=== PATIENT | female | born 1995 | race Caucasian/White ===

== ENCOUNTER 2018-09-18 08:16 | Emergency (ER) | payer OTHER ==
[2018-09-18] MEDS ORDERED: MORPHINE 4 MG/ML SYR ONE (09:18)
[2018-09-18] MEDS ORDERED: ONDANSETRON 4 MG/2 ML VIAL ONE (09:19)
[2018-09-18] MEDS ORDERED: NA CHLORIDE 0.9% 1,000 ML ONE (09:19)
[2018-09-18 09:45] LABS: Absolute Lymphocytes (CBC) 0.9 K/uL (0.7-4.9); Absolute Monocytes 0.9 K/uL (0.1-1.3); Absolute Neutrophil 7.9 K/uL (1.8-8.0); Basophils % 0.5 % (0-1.3); Hematocrit 37.1 % (36.0-45.0); Lymphocytes % 9.3 % (15.3-44.8); MCH 29.8 pg (27.0-35.0); MCV 87.1 fL (80-100); MPV 8.9 fL (7.6-11.3); Monocytes % 9.4 % (3.3-12.3); RBC Red Blood Cell Count 4.26 M/uL (3.86-4.86)
[2018-09-18 10:05] LABS: Urine Blood TRACE (NEG); Urine Glucose NEGATIVE (NEG); Urine Protein 1+ (NEG)
[2018-09-18 10:11] LABS: Albumin 3.9 g/dL (3.4-5.0); Bilirubin Direct 0.1 mg/dL (0-0.2); Bilirubin Total 0.5 mg/dL (0.2-1.0); Potassium 3.5 mmol/L (3.5-5.1); Protein, Total 8.4 g/dL (6.4-8.2)
[2018-09-18 10:19] LABS: Urine Bacteria <20 /HPF (<20); Urine RBC <5 /HPF (NONE SEEN)
[2018-09-18 10:20] LABS: Urine Culture Reflex Order REFLEXED; Urine Mucus 1+ /HPF (NONE SEEN)
--- NOTE | 2018-09-18 11:12 | RAD REPORT ---
EXAM DESCRIPTION: CT - Abdomen Pelvis W Contrast - 09/18/2018 10:31 am CLINICAL HISTORY: Abdominal pain, bilateral flank pain COMPARISON: None. TECHNIQUE: Biphasic, helical CT imaging of the abdomen and pelvis was performed following 100 ml non -ionic IV contrast. Oral contrast was given. All CT scans are performed using dose optimization technique as appropriate and may include automated exposure control or mA/KV adjustment according to patient size. FINDINGS: No suspicious findings in the lung bases. The liver, spleen, and pancreas show no suspicious findings. Gallbladder and biliary tree are also wi thout suspicious finding. Liver attenuation is borderline fatty infiltrated. Symmetric renal function is seen with no hydronephrosis or suspicious renal mass. No pyelonephritis o r acute renal parenchymal process. Urinary bladder is fully contracted. No bladder calculi seen. IUD is in place well positioned in a normal-sized uterus. No suspicious ovarian or adnexal finding. Kathy l for age ovarian cysts or follicles are present. No gastric dilatation or wall thickening. No acute small bowel finding. No appendicitis findings. A f ew small mesenteric lymph nodes seen in the right lower quadrant. No free air, free fluid or inflammatory stranding. No hernia, mass or bulky lymphadenopathy. No adre nal abnormality. No suspicious bony findings. IMPRESSION: No pyelonephritis or acute finding. No acute MOTOR SETTER process. A few small mesenteric lymph nodes are present nonspecific for pattern adenitis or nonspecific enteri tis. No appendicitis or acute GI process seen. Borderline fatty infiltration of the liver.
[2018-09-18] MEDS ORDERED: KETOROLAC 30 MG/ML INJ ONE (12:16)
--- NOTE | 2018-09-18 13:39 | ER ---
Nurse's Notes [facility] Name: Paola Aguilar Age: 22 yrs Sex: Female : 1995 Arrival Date: 09/18/2018 Time: 08:17 Bed 16 Private MD: Diagnosis: Low back pain;Myalgia Presentation: 09/18 08:30 Presenting complaint: Patient states: Mid back pain and urinary urgency x 1 week. hb Transition of care: patient was not received from another setting of care. Onset of symptoms is unknown. Risk Assessment: Do you want to hurt yourself or someone else? Patient reports no desire to harm self or others. Care prior to arrival: None. 08:30 Method Of Arrival: Ambulatory hb 08:30 Acuity: DESIREE 3 hb 08:43 Initial Sepsis Screen: Does the patient meet any 2 criteria? No. Patient's initial hj sepsis screen is negative. Does the patient have a suspected source of infection? No. Patient's initial sepsis screen is negative. Triage Assessment: 08:42 General: Appears in no apparent distress. uncomfortable, Behavior is calm, cooperative, hj appropriate for age. Pain: Complains of pain in back. Musculoskeletal: Circulation, motion, and sensation intact. Capillary refill. 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 - Social history:: Smoking status: Patient/guardian denies using tobacco. - Ebola Screening: : No symptoms or risks identified at this time. Screenin:42 Abuse screen: Denies threats or abuse. Denies injuries from another. Nutritional hj screening: No deficits noted. Tuberculosis screening: No symptoms or risk factors identified. Fall Risk None identified. Assessment: 08:30 General: Appears in no apparent distress. uncomfortable, Behavior is calm, cooperative, hj appropriate for age. Pain: Complains of pain in back. Neuro: Level of Consciousness is awake, alert, obeys commands, Oriented to person, place, time, situation, Appropriate for age. Cardiovascular: Capillary refill < 3 seconds Patient's skin is warm and dry. Respiratory: Airway is patent Respiratory effort is even, unlabored, Respiratory pattern is regular, symmetrical. GI: No signs and/or symptoms were reported involving the gastrointestinal system. : No signs and/or symptoms were reported regarding the genitourinary system. EENT: No signs and/or symptoms were reported regarding the EENT system. Derm: No signs and/or symptoms reported regarding the dermatologic system. Musculoskeletal: Reports pain in back. 09:30 Reassessment: Patient and/or family updated on plan of care and expected duration. Pain hj level reassessed. Patient is alert, oriented x 3, equal unlabored respirations, skin warm/dry/pink. awaiting results and POC: family in room;. 10:30 Reassessment: Patient and/or family updated on plan of care and expected duration. Pain hj level reassessed. Patient is alert, oriented x 3, equal unlabored respirations, skin warm/dry/pink. Patient states feeling better. 11:05 Reassessment: Patient and/or family updated on plan of care and expected duration. Pain hj level reassessed. Patient is alert, oriented x 3, equal unlabored respirations, skin warm/dry/pink. awaiting POC;. 13:00 Reassessment: awaiting other results;. hj Vital Signs: 08:31 BP 151 / 89; Pulse 111; Resp 16; Temp 99.5(O); Pulse Ox 100% on R/A; Pain 8/10; hb 09:30 BP 130 / 87; Pulse 100; Resp 18; Pulse Ox 100% on R/A; hj 11:05 BP 121 / 75; Pulse 106; Resp 18; Pulse Ox 100% on R/A; hj 13:01 BP 125 / 75; Pulse 98; Resp 18; Pulse Ox 100% on R/A; hj 13:37 Temp 99.0(O); hj ED Course: 08:17 Patient arrived in ED. as 08:31 Triage completed. hb 08:31 Arm band placed on right wrist. hb 08:42 Adrian Syed RN is Primary Nurse. hj 08:42 Benjy Davis PA is PHCP. jr8 08:42 Dayo Polanco MD is Attending Physician. jr8 08:43 Patient has correct armband on for positive identification. Placed in gown. Bed in low hj position. Call light in reach. Side rails up X 1. Adult w/ patient. 09:26 Strep Sent. hj 09:26 Urine Microscopic Only Sent. hj 09:26 Basic Metabolic Panel Sent. hj 09:26 CBC with Diff Sent. hj 09:26 Creatinine for Radiology Sent. hj 09:26 Hepatic Function Sent. hj 09:26 Lipase Sent. hj 10:31 CT Abd/Pelvis - W/Contrast In Process Unspecified. EDMS 12:15 Flu and/or RSV swab sent to lab. 3 13:23 XRAY Chest (1 view) In Process Unspecified. EDMS 13:48 No provider procedures requiring assistance completed. IV discontinued, intact, hj bleeding controlled, No redness/swelling at site. Pressure dressing applied. Administered Medications: 09:20 Drug: NS 0.9% 1000 ml Route: IV; Rate: 1000 ml; Site: right antecubital; hj 10:08 Follow up: IV Status: Infusion continued hj 09:20 Drug: morphine 4 mg Route: IVP; Site: right antecubital; hj 10:07 Follow up: Response: No adverse reaction; Pain is decreased hj 09:20 Drug: Zofran 4 mg Route: IVP; Site: right antecubital; hj 10:07 Follow up: Response: No adverse reaction; Nausea is decreased hj 12:04 Drug: TORadol 30 mg Route: IVP; Site: right antecubital; hj 13:27 Follow up: Response: No adverse reaction; Pain is decreased hj Outcome: 13:39 Discharge ordered by MD. haskins 13:48 Discharged to home ambulatory, with family. hj 13:48 Condition: stable 13:48 Discharge instructions given to patient, family, Instructed on discharge instructions, follow up and referral plans. medication usage, Demonstrated understanding of instructions, follow-up care, medications, Prescriptions given X 1. 13:49 Patient left the ED. Signatures: Dispatcher [employer] EDMS Supriya Reno Josh, PA PA jr8 Joaquin, Henry, RN RN hj Baxter, Heather, RN RN hb Herrera, Deanna [facility] Corrections: (The following items were deleted from the chart) 08:32 08:31 LMP 09/18/2018 hb hb
--- NOTE | 2018-09-18 13:39 | EDPHYS ---
Physician Documentation [facility] Name: Paola Aguilar Age: 22 yrs Sex: Female : 1995 Arrival Date: 09/18/2018 Time: 08:17 Bed 16 Private MD: ED Physician Dayo Polanco HPI: 09/18 09:43 This 22 yrs old Female presents to ER via Ambulatory with complaints of Back jr8 Pain. 09:43 The patient presents with pain that is acute. The symptoms are located in the low back. jr8 Onset: The symptoms/episode began/occurred acutely, 2 day(s) ago. The pain does not radiate. Associated signs and symptoms: Pertinent positives: fever. Modifying factors: The patient symptoms are alleviated by nothing, the patient symptoms are aggravated by any movement. Severity of symptoms: At their worst the symptoms were moderate, in the emergency department the symptoms are unchanged. The patient has not experienced similar symptoms in the past. The patient has not recently seen a physician. UTI symptoms last week but stated that since then has resolved. Denies trauma or recent procedures to back . 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 - Social history:: Smoking status: Patient/guardian denies using tobacco. - Ebola Screening: : No symptoms or risks identified at this time. ROS: 09:43 Eyes: Negative for injury, pain, redness, and discharge, ENT: Negative for injury, jr8 pain, and discharge, Neck: Negative for injury, pain, and swelling, Cardiovascular: Negative for chest pain, palpitations, and edema, Respiratory: Negative for shortness of breath, cough, wheezing, and pleuritic chest pain, MS/Extremity: Negative for injury and deformity, Skin: Negative for injury, rash, and discoloration, Neuro: Negative for headache, weakness, numbness, tingling, and seizure. 09:43 Constitutional: Positive for body aches, chills, fever. 09:43 Abdomen/GI: Positive for nausea, Negative for abdominal pain, vomiting, diarrhea. 09:43 Back: Positive for pain at rest, pain with movement, of the low back area. Exam: 09:43 Eyes: Pupils equal round and reactive to light, extra-ocular motions intact. Lids and jr8 lashes normal. Conjunctiva and sclera are non-icteric and not injected. Cornea within normal limits. Periorbital areas with no swelling, redness, or edema. ENT: Nares patent. No nasal discharge, no septal abnormalities noted. Tympanic membranes are normal and external auditory canals are clear. Oropharynx with no redness, swelling, or masses, exudates, or evidence of obstruction, uvula midline. Mucous membranes moist. Neck: Trachea midline, no thyromegaly or masses palpated, and no cervical lymphadenopathy. Supple, full range of motion without nuchal rigidity, or vertebral point tenderness. No Meningismus. Cardiovascular: Regular rate and rhythm with a normal S1 and S2. No gallops, murmurs, or rubs. Normal PMI, no JVD. No pulse deficits. Respiratory: Lungs have equal breath sounds bilaterally, clear to auscultation and percussion. No rales, rhonchi or wheezes noted. No increased work of breathing, no retractions or nasal flaring. Abdomen/GI: Soft, non-tender, with normal bowel sounds. No distension or tympany. No guarding or rebound. No evidence of tenderness throughout. Back: No spinal tenderness. No costovertebral tenderness. Full range of motion. Skin: Warm, dry with normal turgor. Normal color with no rashes, no lesions, and no evidence of cellulitis. MS/ Extremity: Pulses equal, no cyanosis. Neurovascular intact. Full, normal range of motion. Neuro: Awake and alert, GCS 15, oriented to person, place, time, and situation. Cranial nerves II-XII grossly intact. Motor strength 5/5 in all extremities. Sensory grossly intact. Cerebellar exam normal. Normal gait. Vital Signs: 08:31 BP 151 / 89; Pulse 111; Resp 16; Temp 99.5(O); Pulse Ox 100% on R/A; Pain 8/10; hb 09:30 BP 130 / 87; Pulse 100; Resp 18; Pulse Ox 100% on R/A; hj 11:05 BP 121 / 75; Pulse 106; Resp 18; Pulse Ox 100% on R/A; hj 13:01 BP 125 / 75; Pulse 98; Resp 18; Pulse Ox 100% on R/A; 13:37 Temp 99.0(O); MDM: 08:42 Patient medically screened. [facility] 13:37 Differential diagnosis: chronic back pain, Epidural or Perispinal Abcess Epidural or jr8 Perispinal Bleed Fatigue Fracture Hydronephrosis Pyelonephritis ruptured disc, Ureterolithiasis viral syndrome, discitis, colitis, PID, diverticulitis. Data reviewed: vital signs, nurses notes, lab test result(s), radiologic studies, CT scan, plain films. Data interpreted: Pulse oximetry: on room air is 100 %. Interpretation: normal. Counseling: I had a detailed discussion with the patient and/or guardian regarding: the historical points, exam findings, and any diagnostic results supporting the discharge/admit diagnosis, lab results, radiology results, the need for outpatient follow up, a family practitioner, to return to the emergency department if symptoms worsen or persist or if there are any questions or concerns that arise at home. Response to treatment: the patient's symptoms have mildly improved after treatment. 09/18 09:05 Order name: Basic Metabolic Panel; Complete Time: 10:39 [facility] 09/18 09:05 Order name: CBC with Diff; Complete Time: 10:00 [facility] 09/18 09:05 Order name: Creatinine for Radiology; Complete Time: 10:39 [facility] 09/18 09:05 Order name: Hepatic Function; Complete Time: 10:39 [facility] 09/18 09:05 Order name: Lipase; Complete Time: 10:39 [facility] 09/18 09:05 Order name: Urine Microscopic Only; Complete Time: 10:39 [facility] 09/18 09:05 Order name: Strep; Complete Time: 10:00 [facility] 09/18 09:42 Order name: Urine Dipstick--Ancillary (enter results); Complete Time: 10:06 09/18 09:42 Order name: Urine --Ancillary (enter results); Complete Time: 10:06 09/18 09:59 Order name: Throat Culture [facility] 09/18 10:00 Order name: CT Abd/Pelvis - W/Contrast; Complete Time: 11:13 [facility] 09/18 10:21 Order name: Urine Culture [facility] 09/18 12:04 Order name: Flu; Complete Time: 12:45 09/18 12:04 Order name: [place] Screen Profile; Complete Time: 12:28 09/18 09:05 Order name: IV Saline Lock; Complete Time: 09: [facility] 09/18 09:05 Order name: Labs collected and sent; Complete Time: : [facility] 09/18 09:05 Order name: Urine Dipstick-Ancillary (obtain specimen); Complete Time: : [facility] 09/18 12:04 Order name: XRAY Chest (1 view); Complete Time: 13:41 Administered Medications: 09:20 Drug: NS 0.9% 1000 ml Route: IV; Rate: 1000 ml; Site: right antecubital; hj 10:08 Follow up: IV Status: Infusion continued 09:20 Drug: morphine 4 mg Route: IVP; Site: right antecubital; hj 10:07 Follow up: Response: No adverse reaction; Pain is decreased 09:20 Drug: Zofran 4 mg Route: IVP; Site: right antecubital; hj 10:07 Follow up: Response: No adverse reaction; Nausea is decreased 12:04 Drug: TORadol 30 mg Route: IVP; Site: right antecubital; hj 13:27 Follow up: Response: No adverse reaction; Pain is decreased Disposition: 16:25 Co-signature as Attending Physician, Dayo Polanco MD I agree with the assessment and kdr plan of care. Disposition: 09/18/18 13:39 Discharged to Home. Impression: Low back pain, Myalgia. - Condition is Stable. - Discharge Instructions: Back Pain, Adult. - Prescriptions for ketorolac 10 mg Oral tablet - take 1 tablet by ORAL route every 6 hours not to exceed 40 mg in 24hrs; 12 tablet. - Medication Reconciliation Form, Thank You Letter, Antibiotic Education, Prescription Opioid Use form. - Follow up: Private Physician; When: Tomorrow; Reason: Recheck today's complaints, Continuance of care, Re-evaluation by your physician. - Problem is new. - Symptoms have improved. - Notes: Push fluids No other use of NSAIDs Rest Signatures: Dispatcher [employer] EDMS Dayo Polanco MD MD kdr Roszak, Josh, PA PA jr8 Adrian Syed RN RN Emmie Diane RN RN Corrections: (The following items were deleted from the chart) 13:49 13:39 09/18/2018 13:39 Discharged to Home. Impression: Low back pain; Myalgia. hj Condition is Stable. Forms are Medication Reconciliation Form, Thank You Letter, Antibiotic Education, Prescription Opioid Use. Follow up: Private Physician; When: Tomorrow; Reason: Recheck today's complaints, Continuance of care, Re-evaluation by your physician. Problem is new. Symptoms have improved. jr8
--- NOTE | 2018-09-18 13:40 | RAD REPORT ---
EXAM DESCRIPTION: Shelbie Single View09/18/2018 1:23 pm CLINICAL HISTORY: Fever COMPARISON: none FINDINGS: The lungs appear clear of acute infiltrate. The heart is normal size IMPRESSION: No acute abnormalities displayed
== END 2018-09-18 13:49 | disposition home or self-care (01) ==
LOC: ER 08:16
DX: M79.10 Myalgia, unspecified site (principal)
CPT/HCPCS: 36415; 71045; 74177; 80048; 80076; 81003; 81015; 81025; 83690; 85025; 86308; 87070; 87081; 87086; 87088; 87804; 96361; 96374; 96375; 99284; J2405; J7030; Q9967